=== PATIENT | female | born 1995 | race African-American/Black ===

== ENCOUNTER 2016-07-21 09:25 | Day surgery (SDC) | payer OTHER ==
[~2016-07-21] VITALS: Ht 160 cm; Wt 138.5 kg
[~2016-07-21 09:25] MED LIST: ALBUTEROL2.5 MG/3 M IH; AMOXICILLIN875 MG PO; CAPITAL WITH C473 ML PO; ENDOCET 5-3251 EACH PO; FLONASE16 G1 BOTH NARES; HYDROCORTISON28.4 GM TP; IBUPROFEN800 MG PO; KEFLEX500 MG PO; MOTRIN600 MG PO; MUCUS RELIEF600 M1 PO; NEXPLANON68 MG SC; OXYCODONE-ACET1 EACH PO; PERCOCET 5/31 TABLET PO; PREDNISONE20 MG PO; PREDNISONE50 MG PO; PRENATAL VITAM1 EAC7 PO; PROVENTIL,2.5 MG/3 M IH; VENTOLIN HFA18 GM IH; ZITHROMAX Z-PA250 MG PO; ZOFRAN4 MG PO; ZYRTEC10 M2 PO
[2016-07-21 09:50] VITALS: BP 126/61
[2016-07-21] MEDS ORDERED: KEFLEX500 MG PO (12:43)
[2016-07-21 14:24] VITALS: BP 132/75
[2016-07-21 15:20] VITALS: BP 147/71
== END 2016-07-21 15:59 | disposition home or self-care (01) ==
LOC: SDC 09:25
PROC: 0KBM0ZZ Excision of Perineum Muscle, Open Approach (ICD-10-PCS; principal; 2016-07-21)
DX: T81.31XA Disruption of external operation (surgical) wound, not elsewhere classified, initial encounter (principal); Y83.8 Other surgical procedures as the cause of abnormal reaction of the patient, or of later complication, without mention of misadventure at the time of the procedure; L03.311 Cellulitis of abdominal wall; E66.01 Morbid (severe) obesity due to excess calories; Z68.43 Body mass index [BMI] 50.0-59.9, adult
CPT/HCPCS: 87070; 87075; 87076; 87205; J0330; J0690; J1100; J1170; J2250; J2405; J3010

== ENCOUNTER 2016-07-24 12:36 | Emergency (ER) | payer OTHER ==
[~2016-07-24] VITALS: Ht 160 cm; Wt 135.7 kg
[2016-07-24 15:20] VITALS: BP 125/71
== END 2016-07-24 15:21 | disposition home or self-care (01) ==
LOC: EXP 12:36 → EME 12:36 → EXP 15:21
DX: Z48.01 Encounter for change or removal of surgical wound dressing (principal); O86.0 Infection of obstetric surgical wound
CPT/HCPCS: 99281; 99284

== ENCOUNTER 2017-06-22 03:51 | Emergency (ER) | payer OTHER ==
[~2017-06-22] VITALS: Ht 162.6 cm; Wt 143.2 kg
[2017-06-22 05:09] LABS: MCH 28.6 PG (29.0-34.0); MCHC 33.4 G/DL (30.0-36.0); MCV 85.6 FL (83-99); MEAN PLAT.VOLUME 10.6 uM^3 (9.5-12.4); PLATELET COUNT 219 K/uL (156-360); RBC DIS.WIDTH-CV 13.2 % (11.8-14.6); RBC DIS.WIDTH-SD 41.5 % (39-53); RED BLOOD COUNT 4.44 M/uL (3.80-5.20); WHITE BLOOD COUNT 12.2 K/uL (4.1-10.2)
[2017-06-22 05:17] LABS: CHLORIDE 108 mEq/L (99-109); SODIUM 140 mEq/L (136-147)
[2017-06-22 05:18] LABS: GLUCOSE 88 mg/dL (70-99)
[2017-06-22 05:20] LABS: ANION GAP 9 MEQ/L (2-14)
[2017-06-22 05:22] LABS: GFR ESTIMATE (CALCULATED) > 59 mL/min/
[2017-06-22 05:23] LABS: UREA NITROGEN (BUN) 11 mg/dL (9-23)
[2017-06-22 05:30] LABS: QUANTITATIVE HCG < 4.0 MIU/ML
[2017-06-22] MEDS ORDERED: MECLIZINE HCL25 MG PO (06:17)
[2017-06-22 06:30] VITALS: BP 125/61
[2017-06-22 06:44] LABS: ADD MIUA? YES; BILIRUBIN NEGATIVE; BLOOD NEGATIVE; COLOR YELLOW ((YELLOW)); GLUCOSE (STRIP) NEGATIVE; KETONES NEGATIVE; LEUKOCYTES TRACE; NITRITE NEGATIVE; PROTEIN (STRIP) NEGATIVE; SPECIFIC GRAVITY 1.016 (1.000-1.030); UROBILINOGEN 0.2 MG/DL (0.2-1.0)
[2017-06-22 07:23] LABS: BACTERIA 1+ /HPF; EPITHELIAL CELLS 1+ /HPF; MUCUS NONE SEEN /LPF; RED BLOOD CELLS NONE SEEN /HPF (0-5); UCUL ADDED? NO; WHITE BLOOD CELLS 0-5 /HPF (0-5)
== END 2017-06-22 07:14 | disposition home or self-care (01) ==
LOC: EME 03:51
PROVIDERS: Emergency Medicine
DX: R42 Dizziness and giddiness (principal)
CPT/HCPCS: 70450; 80048; 81003; 84702; 85027; 99281; 99285

== ENCOUNTER 2017-08-14 12:37 | Emergency (ER) | payer OTHER ==
[~2017-08-14] VITALS: Ht 165.1 cm; Wt 144.2 kg
[~2017-08-14 12:37] MED LIST changes: +MECLIZINE HCL25 MG PO
[2017-08-14] MEDS ORDERED: MOTRIN800 MG PO (16:06)
[2017-08-14 16:14] VITALS: BP 147/82
== END 2017-08-14 16:15 | disposition home or self-care (01) ==
LOC: EME 12:37
DX: H66.93 Otitis media, unspecified, bilateral (principal); J06.9 Acute upper respiratory infection, unspecified; F17.200 Nicotine dependence, unspecified, uncomplicated
CPT/HCPCS: 99281; 99283

== ENCOUNTER 2017-09-12 00:42 | Emergency (ER) | payer OTHER ==
[~2017-09-12] VITALS: Ht 162.6 cm; Wt 149.1 kg
[~2017-09-12 00:42] MED LIST changes: +MOTRIN800 MG PO
[2017-09-12 01:35] LABS: BASOPHIL (%) 0.3 % (0-1); EOSINOPHIL COUNT 0.2 K/uL (0-0.3); HEMATOCRIT 35.5 % (36.0-46.0); HEMOGLOBIN 11.9 G/DL (11.9-15.5); IMMATURE GRANULOCYTE (%) 0.4 % (0.0-0.7); LYMPHOCYTE (%) 37.5 % (15-42); LYMPHOCYTE COUNT 4.5 K/uL (1.0-2.8); MCHC 33.5 G/DL (30.0-36.0); MCV 86.4 FL (83-99); MONOCYTE (%) 4.6 % (3-12); MONOCYTE COUNT 0.6 K/uL (0-0.8); NEUTROPHIL (%) 55.2 % (45-76); NEUTROPHIL COUNT 6.7 K/uL (1.8-6.4); PLATELET COUNT 226 K/uL (156-360); RBC DIS.WIDTH-CV 13.3 % (11.8-14.6); RBC DIS.WIDTH-SD 41.8 % (39-53); RED BLOOD COUNT 4.11 M/uL (3.80-5.20); WHITE BLOOD COUNT 12.1 K/uL (4.1-10.2)
[2017-09-12 01:52] LABS: CHLORIDE 111 mEq/L (99-109); POTASSIUM 3.4 mEq/L (3.7-5.4); SODIUM 142 mEq/L (136-147)
[2017-09-12 01:53] LABS: GLUCOSE 116 mg/dL (70-99)
[2017-09-12 01:57] LABS: CREATININE 1.2 mg/dL (0.6-1.3); GFR ESTIMATE (CALCULATED) > 59 mL/min/
[2017-09-12 01:58] LABS: UREA NITROGEN (BUN) 13 mg/dL (9-23)
[2017-09-12 03:18] VITALS: BP 116/66
== END 2017-09-12 03:19 | disposition home or self-care (01) ==
LOC: EME 00:42
PROVIDERS: Emergency Medicine
DX: R51 Headache (principal); F17.200 Nicotine dependence, unspecified, uncomplicated
CPT/HCPCS: 80048; 85025; 99281; 99285; J1100; J1200; J2765; J7030

== ENCOUNTER 2017-10-29 18:18 | Emergency (ER) | payer OTHER ==
[~2017-10-29] VITALS: Ht 162.6 cm; Wt 15.8 kg
[2017-10-29 19:06] LABS: HEMATOCRIT 36.4 % (36.0-46.0); HEMOGLOBIN 12.3 G/DL (11.9-15.5); MCH 29.6 PG (29.0-34.0); MCHC 33.8 G/DL (30.0-36.0); MCV 87.5 FL (83-99); PLATELET COUNT 212 K/uL (156-360); RBC DIS.WIDTH-CV 13.5 % (11.8-14.6); RBC DIS.WIDTH-SD 43.6 % (39-53); RED BLOOD COUNT 4.16 M/uL (3.80-5.20); WHITE BLOOD COUNT 9.7 K/uL (4.1-10.2)
[2017-10-29 19:13] LABS: CHLORIDE 110 mEq/L (99-109)
[2017-10-29 19:14] LABS: POTASSIUM 3.9 mEq/L (3.7-5.4); SODIUM 143 mEq/L (136-147)
[2017-10-29 19:15] LABS: GLUCOSE 66 mg/dL (70-99)
[2017-10-29 19:19] LABS: CREATININE 1.2 mg/dL (0.6-1.3); GFR ESTIMATE (CALCULATED) > 59 mL/min/
[2017-10-29 19:20] LABS: UREA NITROGEN (BUN) 11 mg/dL (9-23)
[2017-10-29 19:34] LABS: TROP-I INTERPRETATION NEGATIVE; TROPONIN-I < 0.01 ng/mL (0.0-0.30)
[2017-10-29] MEDS ORDERED: NAPROSYN500 MG PO (19:42)
[2017-10-29] MEDS ORDERED: VENTOLIN HFA18 GM IH (19:46)
[2017-10-29] MEDS ORDERED: PROVENTIL,2.5 MG/3 M IH (19:46)
[2017-10-29 20:20] VITALS: BP 97/57
== END 2017-10-29 20:22 | disposition home or self-care (01) ==
LOC: EME 18:18
DX: R07.89 Other chest pain (principal); J45.909 Unspecified asthma, uncomplicated; G43.909 Migraine, unspecified, not intractable, without status migrainosus; F17.200 Nicotine dependence, unspecified, uncomplicated; Z79.51 Long term (current) use of inhaled steroids
CPT/HCPCS: 71046; 80048; 84484; 85027; 93005; 99281; 99284

== ENCOUNTER 2017-12-18 13:14 | Emergency (ER) | payer OTHER ==
[~2017-12-18] VITALS: Ht 162.6 cm; Wt 153.0 kg
[~2017-12-18 13:14] MED LIST changes: +NAPROSYN500 MG PO
[2017-12-18 13:49] LABS: HEMATOCRIT 37.8 % (36.0-46.0); MCH 29.6 PG (29.0-34.0); MCHC 34.4 G/DL (30.0-36.0); MCV 86.1 FL (83-99); PLATELET COUNT 229 K/uL (156-360); RBC DIS.WIDTH-CV 13.1 % (11.8-14.6); RBC DIS.WIDTH-SD 40.8 % (39-53); RED BLOOD COUNT 4.39 M/uL (3.80-5.20); WHITE BLOOD COUNT 11.4 K/uL (4.1-10.2)
[2017-12-18 13:51] LABS: APPEARANCE CLEAR ((CLEAR)); BILIRUBIN NEGATIVE; BLOOD NEGATIVE; COLOR YELLOW ((YELLOW)); GLUCOSE (STRIP) NEGATIVE; KETONES NEGATIVE; LEUKOCYTES NEGATIVE; NITRITE NEGATIVE; PROTEIN (STRIP) NEGATIVE; SPECIFIC GRAVITY 1.014 (1.000-1.030); UCUL ADDED? NO; UROBILINOGEN 0.2 MG/DL (0.2-1.0)
[2017-12-18 13:59] LABS: CHLORIDE 107 mEq/L (99-109); POTASSIUM 3.8 mEq/L (3.7-5.4); SODIUM 138 mEq/L (136-147)
[2017-12-18 14:01] LABS: GLUCOSE 101 mg/dL (70-99)
[2017-12-18 14:05] LABS: CREATININE 1.2 mg/dL (0.6-1.3); GFR ESTIMATE (CALCULATED) > 59 mL/min/
[2017-12-18 14:06] LABS: UREA NITROGEN (BUN) 10 mg/dL (9-23)
[2017-12-18] MEDS ORDERED: ZOFRAN ODT8 MG PO (14:36)
[2017-12-18 15:00] VITALS: BP 179/114
== END 2017-12-18 15:08 | disposition home or self-care (01) ==
LOC: RME 13:14 → EME 13:14 → RME 15:08
DX: R10.2 Pelvic and perineal pain (principal); R11.0 Nausea; J45.909 Unspecified asthma, uncomplicated; F17.200 Nicotine dependence, unspecified, uncomplicated
CPT/HCPCS: 80048; 81003; 85027; 99281; 99284

== ENCOUNTER 2018-03-12 02:52 | Emergency (ER) | payer OTHER ==
[~2018-03-12] VITALS: Ht 162.6 cm; Wt 157.1 kg
[~2018-03-12 02:52] MED LIST changes: +ZOFRAN ODT8 MG PO
[2018-03-12 04:07] LABS: HEMATOCRIT 36.6 % (36.0-46.0); HEMOGLOBIN 12.2 G/DL (11.9-15.5); MCH 28.8 PG (29.0-34.0); MCHC 33.3 G/DL (30.0-36.0); MCV 86.3 FL (83-99); PLATELET COUNT 210 K/uL (156-360); RBC DIS.WIDTH-CV 13.7 % (11.8-14.6); RED BLOOD COUNT 4.24 M/uL (3.80-5.20); WHITE BLOOD COUNT 9.4 K/uL (4.1-10.2)
[2018-03-12 04:23] LABS: CHLORIDE 106 mEq/L (99-109); POTASSIUM 4.3 mEq/L (3.7-5.4); SODIUM 138 mEq/L (136-147)
[2018-03-12 04:25] LABS: GLUCOSE 107 mg/dL (70-99); TOTAL PROTEIN 6.8 g/dL (6.4-8.3)
[2018-03-12 04:27] LABS: TOTAL BILIRUBIN 0.2 mg/dL (0.0-1.0)
[2018-03-12 04:29] LABS: ALKALINE PHOSPHATASE 61 IU/L (3-129); CREATININE 1.4 mg/dL (0.6-1.3); GFR ESTIMATE (CALCULATED) > 59 mL/min/
[2018-03-12 04:30] LABS: UREA NITROGEN (BUN) 8 mg/dL (9-23)
[2018-03-12 04:31] LABS: AST (GOT) 29 IU/L (2-34)
[2018-03-12 04:32] LABS: ALT (GPT) 30 IU/L (3-49)
[2018-03-12 04:34] LABS: APPEARANCE CLOUDY ((CLEAR)); BILIRUBIN NEGATIVE; BLOOD SMALL; COLOR YELLOW ((YELLOW)); GLUCOSE (STRIP) NEGATIVE; KETONES NEGATIVE; LEUKOCYTES TRACE; NITRITE NEGATIVE; PROTEIN (STRIP) NEGATIVE; SPECIFIC GRAVITY 1.016 (1.000-1.030); UROBILINOGEN 0.2 MG/DL (0.2-1.0)
[2018-03-12 04:39] LABS: BACTERIA NONE SEEN /HPF; EPITHELIAL CELLS 4+ /HPF; MUCUS TRACE /LPF; RED BLOOD CELLS 0-5 /HPF (0-5); UCUL ADDED? NO; WHITE BLOOD CELLS 0-5 /HPF (0-5)
[2018-03-12 04:39] LABS: QUANTITATIVE HCG < 4.0 MIU/ML
[2018-03-12] MEDS ORDERED: NAPROSYN500 MG PO (04:59)
[2018-03-12] MEDS ORDERED: PERCOCET 5/31 TABLET PO (04:59)
[2018-03-12 05:41] VITALS: BP 138/98
== END 2018-03-12 05:42 | disposition home or self-care (01) ==
LOC: EME 02:52
PROVIDERS: Physician Assistant
DX: R10.2 Pelvic and perineal pain (principal); G89.29 Other chronic pain; J45.909 Unspecified asthma, uncomplicated; G43.909 Migraine, unspecified, not intractable, without status migrainosus; F17.200 Nicotine dependence, unspecified, uncomplicated
CPT/HCPCS: 80053; 81003; 84702; 85027; 99281; 99284

== ENCOUNTER 2018-03-12 23:51 | Emergency (ER) | payer OTHER ==
[~2018-03-12] VITALS: Ht 162.6 cm; Wt 157.0 kg
[2018-03-13 00:52] LABS: HEMATOCRIT 36.2 % (36.0-46.0); HEMOGLOBIN 12.1 G/DL (11.9-15.5); MCH 28.9 PG (29.0-34.0); MCHC 33.4 G/DL (30.0-36.0); MCV 86.6 FL (83-99); PLATELET COUNT 211 K/uL (156-360); RBC DIS.WIDTH-CV 13.8 % (11.8-14.6); RED BLOOD COUNT 4.18 M/uL (3.80-5.20); WHITE BLOOD COUNT 10.1 K/uL (4.1-10.2)
[2018-03-13 01:04] LABS: CHLORIDE 107 mEq/L (99-109); POTASSIUM 4.2 mEq/L (3.7-5.4); SODIUM 140 mEq/L (136-147)
[2018-03-13 01:06] LABS: GLUCOSE 105 mg/dL (70-99)
[2018-03-13 01:08] LABS: TOTAL BILIRUBIN 0.2 mg/dL (0.0-1.0)
[2018-03-13 01:09] LABS: ALKALINE PHOSPHATASE 57 IU/L (3-129)
[2018-03-13 01:10] LABS: CREATININE 1.3 mg/dL (0.6-1.3); GFR ESTIMATE (CALCULATED) > 59 mL/min/
[2018-03-13 01:11] LABS: AST (GOT) 29 IU/L (2-34); UREA NITROGEN (BUN) 11 mg/dL (9-23)
[2018-03-13 01:12] LABS: ALT (GPT) 31 IU/L (3-49)
[2018-03-13 01:12] LABS: APPEARANCE CLEAR ((CLEAR)); BILIRUBIN NEGATIVE; BLOOD NEGATIVE; COLOR YELLOW ((YELLOW)); GLUCOSE (STRIP) NEGATIVE; KETONES NEGATIVE; LEUKOCYTES NEGATIVE; NITRITE NEGATIVE; PROTEIN (STRIP) NEGATIVE; SPECIFIC GRAVITY 1.015 (1.000-1.030); UCUL ADDED? NO; UROBILINOGEN 0.2 MG/DL (0.2-1.0)
[2018-03-13 01:22] LABS: QUANTITATIVE HCG < 4.0 MIU/ML
[2018-03-13 03:01] LABS: LIPASE 11 U/L (1.0-51.0)
[2018-03-13 05:35] VITALS: BP 122/49
== END 2018-03-13 05:36 | disposition home or self-care (01) ==
LOC: EME 23:51
DX: N83.202 Unspecified ovarian cyst, left side (principal); R11.0 Nausea; J45.909 Unspecified asthma, uncomplicated; F17.200 Nicotine dependence, unspecified, uncomplicated; G43.909 Migraine, unspecified, not intractable, without status migrainosus
CPT/HCPCS: 74177; 80053; 81003; 83690; 84702; 85027; 99281; 99284; J7030